=== PATIENT | male | born 1965 | race Caucasian/White ===

== ENCOUNTER 2016-11-14 14:59 | Emergency (ER) | payer SELFPAY ==
[2016-11-14 15:06] VITALS: RESP 16
--- NOTE | 2016-11-14 15:19 | EDPHY ---
H & P Stated Complaint: fall from 4 feet up a ladder, - loc, + scalp lac Time Seen by Provider: 11/14/16 15:06 HPI/ROS: CHIEF COMPLAINT: Head injury HISTORY OF PRESENT ILLNESS: 51-year-old male with no anticoagulant use history arrives via private vehicle complaining of head and back injury when he was standing on a ladder a height of approximately 3-4 feet and fell backward when the ladder gave out impacted the occiput of his head with no loss of consciousness, no amnesia, no vomiting, no headache, no anticoagulant use. He is complaining of midline thoracic spine pain. No peripheral paresthesia, weakness, numbness. No midline C-spine pain. REVIEW OF SYSTEMS: A ten point review of systems was performed and is negative with the exception of the items mentioned in the HPI PAST MEDICAL/SURGICAL HISTORY: no anticoagulant use, no relevant medical/ surgical history SOCIAL HISTORY: denies alcohol use at time of incident PHYSICAL EXAM 1) GENERAL: Well-developed, well-nourished, alert and oriented. Appears to be in no acute distress. Answering questions appropriately. GCS 15 2) HEAD: Normocephalic, 6 cm occipital laceration with no galea defects 3) HEENT: Pupils equal, round, reactive to light bilaterally. Negative Horners. Nasopharynx, oropharynx, clear. No deformity or angulation of nose. No septal hematoma. No rhinorrhea. No oral trauma. Ears bilaterally with normal tympanic membranes. No hemotympanum. No fluid or blood in the external auditory canal. No raccoon eyes. No Díaz sign. Teeth are normally aligned with no gross malocclusion, TMJ bilaterally nontender, facial bones nontender including the zygomatic arch, maxilla mandible. 4) NECK: No cervical collar is on. Posterior cervical spine is nontender, no stepoff, no effusion. Full range of motion which does not elicit any midline cervical spine pain, no posterior midline tenderness, no step-off. 5) LUNGS: Clear to auscultation bilaterally, no wheezes, no rhonchi, no retractions. No obvious signs of trauma. No chest wall pain. No flaring, no grunting. Moving symmetrically. No crepitus. 6) HEART: Regular rate and rhythm, 7) ABDOMEN: No guarding, no rebound, no focal tenderness, no peritoneal signs, no signs of trauma, no ecchymosis 8) MUSCULOSKELETAL: Moving all extremities, no focal areas of tenderness, no obvious trauma. 9) BACK: Abrasion to the upper thoracic region approximately T3 with no midline tenderness at same location. Otherwise, no midline pain or signs of trauma 10) SKIN: scalp laceration DIFFERENTIAL DIAGNOSIS: [ Not necessarily in any particular order, my differential diagnosis includes, but is not limited to, concussion, skull fracture, intraparenchymal contusion, subarachnoid, subdural and epidural hematoma, vertebral fracture. The patient understands that this diagnosis is provisional and can never be 100% accurate. - Personal History Current Tetanus Diphtheria and Acellular Pertussis (TDAP): Unsure Tetanus Vaccine Date: 10yrs - Medical/Surgical History Hx Asthma: No Hx Chronic Respiratory Disease: No Hx Diabetes: No Hx Cardiac Disease: No Hx Renal Disease: No Hx Cirrhosis: No Hx Alcoholism: No Hx HIV/AIDS: No Hx Splenectomy or Spleen Trauma: No Other PMH: wrist fracture but no surgical intervention - Social History Smoking Status: Light smoker Constitutional: Initial Vital Signs Temperature (C) 36.3 C 11/14/16 15:03 Heart Rate 64 11/14/16 15:03 Respiratory Rate 16 11/14/16 15:03 Blood Pressure 155/94 H 11/14/16 15:03 O2 Sat (%) 95 11/14/16 15:03 O2 Delivery Mode Room Air Allergies/Adverse Reactions: No Known Allergies Allergy (Unverified 02/11/10 18:36) Home Medications: Medication Instructions Recorded Herbals/Supplements -Info Only 1 ea PO DAILY 12/21/14 traMADol 11/14/16 Medical Decision Making - Diagnostics Imaging Results: Imaging Impressions Thoracic Spine X-Ray 11/14/16 15:15 Impression: Mild T7 compression of unknown age. Correlation with the site of symptoms is recommended. If there is concern that this is acute, then consider thoracic MRI to assess for bone marrow edema area Thoracic Spine CT 11/14/16 17:55 Impression: Old mild compression fracture of T7 with no acute findings. If pain persists and clinical suspicion warrants, consider MRI. Images reviewed by myself Procedures: Procedure: Laceration repair. I explained the indications, risks and benefits for both laceration repair and anesthetic administration. Verbal consent was obtained from the patient . The laceration on the occipital scalp was anesthetized using 0.5% bupivicaine with epinephrine . After anesthetic administered the patient was observed for a period of time and had no apparent adverse effects. The wound was cleaned, prepped, draped in normal sterile fashion and explored to its base. No foreign body seen, no foreign bodies palpated. There were no deep structures involved. No galea defects identified. The wound was repaired with 11 april. The wound repair was complex. The procedure was performed by myself. Patient has been informed that scarring will occur, although efforts have been made to minimize this. ED Course/Re-evaluation: Patient has negative [place] head injury decision-making rule. I do not think that CT imaging is indicated. He is in agreement with this. I believe him to have decision-making capacity. Thoracic x-ray obtained. Discussed case with Dr Gutierrez. after reviewing the patient's x-ray results given location of his pain MRI was obtained. Subsequently the patient was in the MRI machine and complained of claustrophobia and anxiety and declined the MRI. A CT reconstructive UA was obtained which showed no acute fracture. Patient has been re-evaluated serial exams he remains neurologically intact and plan will be discharge. Return to ER in 7 days for staple removal. he remains with a GCS of 15 throughout his emergency department course. - Data Points Medications Given: Discontinued Medications Diphtheria/Tetanus/Acell Pertussis (Boostrix) 0.5 ml IM .ONCE ONE Stop: 11/14/16 15:32 Last Admin: 11/14/16 15:45 Dose: 0.5 ml Departure - Departure Disposition: Home, Routine, Self-Care Clinical Impression: Fall from ladder Qualifiers: Encounter type: initial encounter Qualified Code(s): W11.XXXA - Fall on and from ladder, initial encounter Abrasion of back Qualifiers: Encounter type: initial encounter Laterality: right Qualified Code(s): S20.411A - Abrasion of right back wall of thorax, initial encounter Head injury Qualifiers: Encounter type: initial encounter Qualified Code(s): S09.90XA - Unspecified injury of head, initial encounter Scalp laceration Qualifiers: Encounter type: initial encounter Qualified Code(s): S01.01XA - Laceration without foreign body of scalp, initial encounter Condition: Good Instructions: Laceration (ED), Care For Your Stitches (ED), Head Injury (ED), Concussion (ED) Additional Instructions: ALTHOUGH THERE IS NO EVIDENCE OF SERIOUS HEAD INJURY AT THIS TIME, DELAYED SIGNS CAN APPEAR 24 TO 48 HOURS AFTER INJURY. WE RECOMMEND THAT YOU DESIGNATE A FRIEND OR FAMILY MEMBER TO OBSERVE YOU OVER THE NEXT FEW DAYS TO ENSURE THAT YOUR CONDITION IS PROGRESSING NORMALLY. PLEASE RETURN TO THE EMERGENCY DEPARTMENT (ED) IMMEDIATELY IF YOU HAVE INCREASED HEADACHE, PERSISTENT HEADACHE , VOMITING, WEAKNESS, CONFUSION OR VISUAL PROBLEMS. WE RECOMMEND THAT YOU DO NOT RESUME CONTACT SPORTS OR ACTIVITIES THAT TAKE COORDINATION OR BALANCE SUCH SKIING OR RIDING A BICYCLE UNTIL CLEARED TO DO SO BY YOUR DOCTOR OR BY A NEUROLOGIST. Referrals: Return, to the ER in 7 days for staple removal [Other] - As per Instructions
[2016-11-14] MEDS ORDERED: TDAP ADULT 0.5 ML INJ (BOOSTRIX) IM ONE (15:31)
[2016-11-14] MEDS ORDERED: LORazepam 1 MG TAB ONE (17:25)
[2016-11-14 18:06] VITALS: O2SAT 96
[2016-11-14 19:17] VITALS: BP 142/88; PULSE 63; TEMP 97.7
== END 2016-11-14 19:17 | disposition home or self-care (01) ==
PROC: 0HQ0XZZ Repair Scalp Skin, External Approach (ICD-10-PCS; principal; 2016-11-14)
DX: S01.01XA Laceration without foreign body of scalp, initial encounter (principal); S20.411A Abrasion of right back wall of thorax, initial encounter; F17.200 Nicotine dependence, unspecified, uncomplicated; Z23 Encounter for immunization; W11.XXXA Fall on and from ladder, initial encounter